=== PATIENT | male | born 1960 | race Caucasian/White ===

== ENCOUNTER → 2017-08-20 | Outpatient (CLI) | payer OTHER | LOC: M SMT 11:56 | PROVIDERS: ATTEND Nurse Practitioner Women's Health | DX: Z12.5 Encounter for screening for malignant neoplasm of prostate (principal) | CPT/HCPCS: 36415; G0103 ==

== ENCOUNTER 2017-11-02 20:09 | Emergency (ER) | payer OTHER ==
[2017-11-02] MEDS: NORCO, ANEXSIA 5/325MG TABLET (HYDROcodone/ACETAMINOPHEN) PO (20:29)
== END 2017-11-02 22:23 | disposition home or self-care (01) ==
LOC: M ED 20:09
DX: S39.002A Unspecified injury of muscle, fascia and tendon of lower back, initial encounter (principal); T14.8XXA Other injury of unspecified body region, initial encounter; W20.8XXA Other cause of strike by thrown, projected or falling object, initial encounter; Y92.59 Other trade areas as the place of occurrence of the external cause; Y99.0 Civilian activity done for income or pay
CPT/HCPCS: 72110

== ENCOUNTER 2020-05-08 23:43 | Emergency (ER) | payer OTHER ==
[~2020-05-08] VITALS: Ht 185.4 cm; Wt 119.1 kg
[2020-05-09 00:57] VITALS: BP 140/75
== END 2020-05-09 01:01 | disposition home or self-care (01) ==
LOC: M ED 23:43
DX: Z47.89 Encounter for other orthopedic aftercare (principal); G47.33 Obstructive sleep apnea (adult) (pediatric)

== ENCOUNTER → 2020-05-08 | Outpatient (CLI) | payer OTHER ==
[~2020-05-08] MED LIST: HYDR-3715 PO; IBUP-1022 PO; bp
--- NOTE | 2020-06-07 10:48 | REP ---
RIGHT HAND SERIES CLINICAL: Pain with recent trauma. TECHNIQUE: AP, lateral, bilateral oblique views of the right hand. FINDINGS: There is an oblique nondisplaced fracture at the base of the fifth metacarpal bone with overlying soft tissue swelling. Remainder of examination demonstrates age-related changes. IMPRESSION: Nondisplaced oblique fracture at the base of the fifth metacarpal bone. MTDD
== END ==
LOC: M WUC 09:56
PROVIDERS: ATTEND Nurse Practitioner Family
DX: S62.346A Nondisplaced fracture of base of fifth metacarpal bone, right hand, initial encounter for closed fracture (principal); X58.XXXA Exposure to other specified factors, initial encounter; Y92.9 Unspecified place or not applicable; Y99.9 Unspecified external cause status

== ENCOUNTER → 2020-10-10 | Outpatient (CLI) | payer OTHER | LOC: M LABSMTC 13:56 | PROVIDERS: ATTEND Pediatrics | DX: Z20.822 Contact with and (suspected) exposure to COVID-19 (principal) | CPT/HCPCS: C9803; U0003 ==

== ENCOUNTER → 2021-01-18 | Outpatient (REF) ==
--- NOTE | 2021-01-18 08:46 | REPPI ---
INDICATION: RIGHT KNEE PAIN DISABILITY COMPARISON: None. TECHNIQUE: AP, lateral, bilateral oblique and sunrise views. FINDINGS: Mild tricompartmental osteoarthritic degenerative changes include subchondral sclerosis along the tibial plateau and posterior patellar margin along with mild joint space narrowing and small marginal osteophytes. No acute fracture or dislocation. Calcifications of the quadriceps tendon and patellar ligament along the anterior margin of the patella noted with prepatellar soft tissue swelling. No evidence for acute fracture or dislocation. No obvious effusion. IMPRESSION: Mild/moderate tricompartmental degenerative changes. <Electronically signed by Reji Casillas > 01/18/21 0869
== END ==
LOC: M PLAIMG 08:13
PROVIDERS: ATTEND Internal Medicine
DX: M17.11 Unilateral primary osteoarthritis, right knee (principal)

== ENCOUNTER → 2022-03-03 | Outpatient (CLI) | payer OTHER ==
[~2022-03-03] MED LIST changes: +CALC1TAB30 PO; +D3 H2000 PO; +IBUP200T46 PO; +META0.52 PO; +POTA99CA2 PO; +SILD100T7 PO; +TAMS1CAP17 PO; +VISISOL2 OP; +VITA500T40 PO; +ZINC30CA PO; +[UNRECOGNIZED DRUG - OTHER] PO
== END ==
LOC: M LABSMTC 09:43
PROVIDERS: ATTEND Anesthesiology
DX: Z01.818 Encounter for other preprocedural examination (principal); Z11.52 Encounter for screening for COVID-19

== ENCOUNTER → 2022-10-19 | Outpatient (CLI) | payer OTHER ==
[~2022-10-19] MED LIST changes: +[UNRECOGNIZED DRUG - OTHER]
== END ==
LOC: M LABSMTC 10:16
PROVIDERS: ATTEND Anesthesiology
DX: Z01.812 Encounter for preprocedural laboratory examination (principal); Z20.822 Contact with and (suspected) exposure to COVID-19

== ENCOUNTER 2022-10-22 07:31 | Day surgery (SDC) | payer OTHER ==
[~2022-10-22] VITALS: Ht 185.4 cm; Wt 132.9 kg
[~2022-10-22 07:31] MED LIST changes: +NS 1,000 ML IV ONE
[2022-10-22] MEDS ORDERED: LIDOCAINE 2% 100MG/5ML SDV (FOR ANES.) As Ordered ONE (08:38)
[2022-10-22] MEDS ORDERED: propofoL 200 MG/20 ML VIAL As Ordered ONE ×2 (08:38→09:11)
[2022-10-22 09:40] VITALS: BP 131/63
== END 2022-10-22 10:13 | disposition home or self-care (01) ==
LOC: M OPP 07:31
PROVIDERS: ATTEND Internal Medicine Gastroenterology
DX: Z12.11 Encounter for screening for malignant neoplasm of colon (principal); D12.8 Benign neoplasm of rectum; K63.5 Polyp of colon; K57.30 Diverticulosis of large intestine without perforation or abscess without bleeding; K64.0 First degree hemorrhoids; Z79.51 Long term (current) use of inhaled steroids; Z79.899 Other long term (current) drug therapy; Z99.89 Dependence on other enabling machines and devices; G47.33 Obstructive sleep apnea (adult) (pediatric); N40.0 Benign prostatic hyperplasia without lower urinary tract symptoms

== ENCOUNTER → 2023-09-05 | Outpatient (REF) | payer OTHER ==
[~2023-09-05] MED LIST changes: -NS 1,000 ML IV ONE
== END ==
LOC: M LAB REF 18:08
PROVIDERS: ATTEND Physician Assistant
DX: R42 Dizziness and giddiness (principal)

== ENCOUNTER 2023-09-07 21:00 | Emergency (ER) | payer OTHER ==
[2023-09-07 21:35] VITALS: TEMP 97.2; O2SAT 97
[2023-09-07] MEDS ORDERED: LORazepam 2 MG/ML 1ML VIAL IV STA (22:09)
[2023-09-07 23:14] LABS: BASO % 0.2 % (0.0-1.0); EOS # 0.2 10^3/uL (0.0-0.5); HEMATOCRIT 43.2 % (42.0-52.0); HEMOGLOBIN 15.2 g/dl (13.5-17.5); LYMPH # 1.9 10^3/uL (1.5-5.0); LYMPH % 20.4 % (24.0-44.0); MEAN CORPUSCULAR HEMOGLOBIN 31.1 pg (27.0-33.0); MEAN CORPUSCULAR HGB CONC 35.2 g/dl (32.0-36.5); MEAN CORPUSCULAR VOLUME 88.3 fl (80.0-96.0); MONO # 0.7 10^3/uL (0.0-0.8); NEUTROPHILS # 6.3 10^3/uL (1.5-8.5); NEUTROPHILS % 69.1 % (36.0-66.0); PLATELET COUNT, AUTOMATED 172 10^3/uL (150-450); RED BLOOD COUNT 4.89 10^6/uL (4.30-6.10); WHITE BLOOD COUNT 9.1 10^3/uL (4.0-10.0)
[2023-09-07 23:37] LABS: ALBUMIN 3.6 G/DL (3.2-5.2); ALKALINE PHOSPHATASE 73 U/L (46-116); ALT/SGPT 49 U/L (7.0-40); AST/SGOT 30 U/L (<34); BILIRUBIN,TOTAL 0.5 MG/DL (0.3-1.2); BLOOD UREA NITROGEN 12 MG/DL (9-23); CALCIUM LEVEL 9.1 MG/DL (8.3-10.6); CARBON DIOXIDE LEVEL 26 MMOL/L (20-31); CHLORIDE LEVEL 107 MMOL/L (98-107); CK-MB VALUE MASS < 1.0 NG/ML (<3.6); CPK CREATINE PHOSPHOKINASE 50 U/L (46-171); CREATININE FOR GFR 0.64 MG/DL (0.70-1.30); GLOMERULAR FILTRATION RATE > 60.0 (>49); GLUCOSE, FASTING 127 MG/DL (74-106); POTASSIUM SERUM 3.9 MMOL/L (3.5-5.1); SODIUM LEVEL 140 MMOL/L (136-145); TOTAL PROTEIN 6.1 G/DL (5.7-8.2)
[2023-09-07 23:39] LABS: FREE T4 1.13 NG/DL (0.89-1.76); THYROID STIMULATING HORMONE 2.392 uIU/ML (0.55-4.78)
[2023-09-07 23:59] VITALS: BP 177/89
== END 2023-09-08 01:40 | disposition home or self-care (01) ==
LOC: M ED 21:00
DX: H81.10 Benign paroxysmal vertigo, unspecified ear (principal); R00.1 Bradycardia, unspecified; I10 Essential (primary) hypertension; G47.33 Obstructive sleep apnea (adult) (pediatric); N40.0 Benign prostatic hyperplasia without lower urinary tract symptoms; Z79.899 Other long term (current) drug therapy; Z79.1 Long term (current) use of non-steroidal anti-inflammatories (NSAID)
CPT/HCPCS: 70450; 70544; 70551; 71045; 80053; 82550; 82553; 84439; 84443; 84484; 85025; 93005; 93041; 94760; 96374; 99284; J2060

== ENCOUNTER → 2024-04-05 | Outpatient (CLI) | payer OTHER | LOC: M WUC 11:38 | PROVIDERS: ATTEND Nurse Practitioner Family | DX: M54.6 Pain in thoracic spine (principal); W01.10XA Fall on same level from slipping, tripping and stumbling with subsequent striking against unspecified object, initial encounter; M85.88 Other specified disorders of bone density and structure, other site ==

== ENCOUNTER → 2024-05-27 | Outpatient (REF) | payer OTHER ==
[2024-05-27 13:42] LABS: APPEARANCE, URINE CLEAR (CLEAR); BACTERIA, URINE AUTO NEGATIVE (NEGATIVE); BILIRUBIN, URINE AUTO NEGATIVE (NEGATIVE); BLOOD, URINE BLOOD NEGATIVE (NEGATIVE); COLOR, URINE YELLOW (YELLOW); GLUCOSE, URINE (UA) AUTO NEGATIVE (NEGATIVE); KETONE, URINE AUTO NEGATIVE (NEGATIVE); LEUKOCYTE ESTERASE, URINE AUTO NEGATIVE (NEGATIVE); MUCUS, URINE SMALL (NEGATIVE); NITRITE, URINE AUTO NEGATIVE (NEGATIVE); PROTEIN, URINE AUTO NEGATIVE (NEGATIVE); RBC, URINE AUTO 0 /HPF (0-3); SPECIFIC GRAVITY URINE AUTO 1.018 (1.002-1.035); SQUAMOUS EPITHELIAL CELL UR AU 0 /HPF (0-6); UROBILINOGEN, URINE AUTO 0.2 mg/dL (0.0-2.0); WBC, URINE AUTO 1 /HPF (0-3)
== END ==
LOC: M LAB REF 12:42
PROVIDERS: ATTEND Physician Assistant
DX: R82.90 Unspecified abnormal findings in urine (principal)

== ENCOUNTER 2025-09-08 17:21 | Inpatient (IN) | payer OTHER ==
[~2025-09-08] VITALS: Ht 185.4 cm; Wt 146.4 kg
[~2025-09-08 17:21] MED LIST changes: -IBUP-1022 PO; +IBUP600T42 PO
[2025-09-08] MEDS: NS (Normal Saline) 0.9% 1,000 ML IV ONE (18:22)
[2025-09-08 18:24] LABS: BASO # 0.0 10^3/uL (0.0-0.2); BASO % 0.2 % (0.0-1.0); EOS # 0.0 10^3/uL (0.0-0.5); EOS % 0.0 % (0.0-3.0); LYMPH # 0.4 10^3/uL (1.5-5.0); LYMPH % 3.5 % (24.0-44.0); MONO # 1.3 10^3/uL (0.0-0.8); MONO % 13.3 % (2.0-8.0); NEUTROPHILS # 8.2 10^3/uL (1.5-8.5); NEUTROPHILS % 82.7 % (36.0-66.0); PLATELET COUNT, AUTOMATED 131 10^3/uL (150-450)
[2025-09-08 18:45] LABS: ALT/SGPT 77 U/L (7.0-40); AST/SGOT 60 U/L (<34); C REACTIVE PROTEIN QUANTITATIV 4.51 MG/DL (<1.0); CALCIUM LEVEL 9.2 MG/DL (8.3-10.6); CARBON DIOXIDE LEVEL 25 MMOL/L (20-31); CHLORIDE LEVEL 105 MMOL/L (98-107); CREATININE FOR GFR 0.75 MG/DL (0.70-1.30); GLOMERULAR FILTRATION RATE > 90.0 (>49); POTASSIUM SERUM 3.9 MMOL/L (3.5-5.1); SODIUM LEVEL 141 MMOL/L (136-145)
[2025-09-08 18:59] LABS: SOFIA COVID ANTIGEN NEGATIVE (NEGATIVE)
[2025-09-08 19:27] LABS: KETONE, URINE AUTO RFX NEGATIVE (NEGATIVE); LEUKOCYTE ESTERASE UR AUTO RFX NEGATIVE (NEGATIVE); NITRITE, URINE AUTO RFX NEGATIVE (NEGATIVE); RBC, URINE AUTO RFX 19 /HPF (0-3); SQUAM EPITHELIAL CELL UR AURFX 0 /HPF (0-6); WBC, URINE AUTO RFX 0 /HPF (0-3)
[2025-09-08] MEDS ORDERED: med rec comment (19:53)
[2025-09-08] MEDS: cefTRIAXone SOD 1 GM in DEXTROSE 5% (D5W) ADV/MINI-BAG 50 ML IV ONE (20:01)
[2025-09-08] MEDS ORDERED: HOME MED LIST COMPLETE! XX SCH (20:25)
[2025-09-08] MEDS ORDERED: ONDANSETRON 4MG/2ML VIAL IV PRN (21:40)
[2025-09-08] MEDS ORDERED: MOM 30 ML SUSPENSION UDC PO PRN (21:40)
[2025-09-08] MEDS: DOXYCYCLINE HYCLATE 100 MG in DEXTROSE 5% (D5W) MINI-BAG PLU 100 ML IV SCH (22:33)
[2025-09-08] MEDS: OSELTAMIVIR PHOSPHATE 75 MG CAP PO SCH (22:33)
[2025-09-08] MEDS: amLODIPine 5 MG TAB PO ONE (22:44)
[2025-09-08 22:51] VITALS: BP 188/76; TEMP 101.7; O2SAT 95
[2025-09-08] MEDS: ACETAMINOPHEN 325 MG TAB PO PRN (23:12)
[2025-09-08] MEDS: IPRATROPIUM 0.5 MG/ALBUTEROL 2.5 MG INH SOL UD 3 ML NEB PRN (23:45)
[2025-09-09] VITALS (12 sets, daily range): BP systolic 133–192; BP diastolic 62–84; TEMP 96.9–102.2; O2SAT 90–98
[2025-09-09] MEDS: **hydrALAZINE HCL** 25 MG TAB PO ONE (00:39)
[2025-09-09] MEDS: IBUPROFEN 800 MG TAB PO ONE (01:14)
[2025-09-09] MEDS: NS (Normal Saline) 0.9% 1,000 ML IV SCH (01:18)
[2025-09-09 06:53] LABS: PLATELET COUNT, AUTOMATED 113 10^3/uL (150-450)
[2025-09-09 07:42] LABS: ALT/SGPT 62 U/L (7.0-40); AST/SGOT 54 U/L (<34); CALCIUM LEVEL 8.5 MG/DL (8.3-10.6); CARBON DIOXIDE LEVEL 23 MMOL/L (20-31); CHLORIDE LEVEL 108 MMOL/L (98-107); CREATININE FOR GFR 0.63 MG/DL (0.70-1.30); GLOMERULAR FILTRATION RATE > 90.0 (>49); MAGNESIUM LEVEL 1.8 MG/DL (1.8-2.4); POTASSIUM SERUM 3.7 MMOL/L (3.5-5.1); SODIUM LEVEL 141 MMOL/L (136-145)
[2025-09-09] MEDS: cefTRIAXone SOD 2 GM in DEXTROSE 5% (D5W) ADV/MINI-BAG 50 ML IV SCH (08:38)
[2025-09-09] MEDS: ENOXAPARIN 40 MG/0.4 ML SYRINGE (J1650 PER 10MG) SC SCH (08:53)
[2025-09-09] MEDS: **hydrALAZINE** 10 MG TAB PO ONE (10:08)
[2025-09-09] MEDS: FUROSEMIDE 20 MG/2 ML VIAL IV ONE (12:26)
[2025-09-09] MEDS: IPRATROPIUM 0.5 MG/ALBUTEROL 2.5 MG INH SOL UD 3 ML NEB PRN (13:53)
[2025-09-09] MEDS ORDERED: MIRALAX *UNIT DOSE* 17 GM PACKET PO PRN (17:25)
[2025-09-09] MEDS: amLODIPine 10 MG TAB PO SCH (20:03)
[2025-09-09] MEDS: **hydrALAZINE HCL** 25 MG TAB PO PRN (21:19)
[2025-09-09] MEDS ORDERED: PILL CUTTER 1 EACH XX PRN (23:20)
[2025-09-09] MEDS: **hydrALAZINE HCL** 25 MG TAB PO SCH (23:25)
[2025-09-10] VITALS (7 sets, daily range): BP systolic 132–159; BP diastolic 65–74; TEMP 97.1–98.1; O2SAT 93–100
[2025-09-10 06:06] LABS: BASO # 0.0 10^3/uL (0.0-0.2); BASO % 0.2 % (0.0-1.0); EOS # 0.1 10^3/uL (0.0-0.5); EOS % 1.2 % (0.0-3.0); LYMPH # 0.9 10^3/uL (1.5-5.0); LYMPH % 15.0 % (24.0-44.0); MONO # 1.0 10^3/uL (0.0-0.8); MONO % 16.3 % (2.0-8.0); NEUTROPHILS # 4.0 10^3/uL (1.5-8.5); NEUTROPHILS % 66.8 % (36.0-66.0); PLATELET COUNT, AUTOMATED 125 10^3/uL (150-450)
[2025-09-10 06:35] LABS: CALCIUM LEVEL 8.7 MG/DL (8.3-10.6); CARBON DIOXIDE LEVEL 26 MMOL/L (20-31); CHLORIDE LEVEL 106 MMOL/L (98-107); CREATININE FOR GFR 0.67 MG/DL (0.70-1.30); GLOMERULAR FILTRATION RATE > 90.0 (>49); MAGNESIUM LEVEL 1.9 MG/DL (1.8-2.4); POTASSIUM SERUM 3.8 MMOL/L (3.5-5.1); SODIUM LEVEL 141 MMOL/L (136-145)
[2025-09-10] MEDS ORDERED: ISOVUE-370 76% 100 ML VIAL As Ordered ONE (08:32)
[2025-09-10] MEDS: LOSARTAN 25 MG TAB PO SCH (10:36)
[2025-09-10] MEDS: MAG SULF 1GM/100ML (MAG RUN) 1 GM in IV 1 EA IV ONE (11:37)
[2025-09-10] MEDS: DOXYCYCLINE HYCLATE 100 MG TABLET PO SCH (12:40)
[2025-09-10] MEDS: FUROSEMIDE 20 MG/2 ML VIAL IV ONE (16:40)
[2025-09-11 03:42] VITALS: BP 153/70; TEMP 98.2; O2SAT 97
[2025-09-11 06:29] LABS: BASO # 0.0 10^3/uL (0.0-0.2); BASO % 0.2 % (0.0-1.0); EOS # 0.1 10^3/uL (0.0-0.5); EOS % 2.2 % (0.0-3.0); LYMPH # 1.1 10^3/uL (1.5-5.0); LYMPH % 22.7 % (24.0-44.0); MONO # 0.6 10^3/uL (0.0-0.8); MONO % 12.7 % (2.0-8.0); NEUTROPHILS # 3.1 10^3/uL (1.5-8.5); NEUTROPHILS % 61.8 % (36.0-66.0); PLATELET COUNT, AUTOMATED 140 10^3/uL (150-450)
[2025-09-11 06:52] LABS: CALCIUM LEVEL 8.6 MG/DL (8.3-10.6); CARBON DIOXIDE LEVEL 24 MMOL/L (20-31); CHLORIDE LEVEL 105 MMOL/L (98-107); CREATININE FOR GFR 0.65 MG/DL (0.70-1.30); GLOMERULAR FILTRATION RATE > 90.0 (>49); MAGNESIUM LEVEL 2.0 MG/DL (1.8-2.4); POTASSIUM SERUM 3.7 MMOL/L (3.5-5.1); SODIUM LEVEL 139 MMOL/L (136-145)
[2025-09-11 08:34] VITALS: BP 128/66; TEMP 98.7; O2SAT 98
[2025-09-11] MEDS: FUROSEMIDE 40 MG/4 ML VIAL IV ONE (09:38)
[2025-09-11 11:51] VITALS: BP 153/67; TEMP 96.8; TEMP 98.5; O2SAT 94
[2025-09-11 19:53] VITALS: BP 149/70; TEMP 99.6; O2SAT 95
[2025-09-11] MEDS: POTASSIUM CHLORIDE 10MEQ SR TABLET PO ONE (20:52)
[2025-09-12 00:20] VITALS: BP 129/60; TEMP 98.3; O2SAT 95
[2025-09-12 05:35] VITALS: BP 131/65; TEMP 98.5; O2SAT 97
[2025-09-12 08:05] VITALS: BP 134/64; TEMP 98.7; O2SAT 95
[2025-09-12] MEDS: CEFPODOXIME PROXETIL 200 MG TABLET PO SCH (08:10)
[2025-09-12 08:11] VITALS: BP 134/64
[2025-09-12 08:39] LABS: BASO # 0.0 10^3/uL (0.0-0.2); BASO % 0.4 % (0.0-1.0); EOS # 0.1 10^3/uL (0.0-0.5); EOS % 2.2 % (0.0-3.0); LYMPH # 1.1 10^3/uL (1.5-5.0); LYMPH % 19.4 % (24.0-44.0); MONO # 0.7 10^3/uL (0.0-0.8); MONO % 12.7 % (2.0-8.0); NEUTROPHILS # 3.6 10^3/uL (1.5-8.5); NEUTROPHILS % 65.1 % (36.0-66.0); PLATELET COUNT, AUTOMATED 150 10^3/uL (150-450)
[2025-09-12] MEDS ORDERED: AMLO1TAB25 PO (08:45)
[2025-09-12] MEDS ORDERED: OSEL75CA2 PO (08:45)
[2025-09-12] MEDS ORDERED: LOSA-527 PO (08:45)
[2025-09-12] MEDS ORDERED: CEFP200T PO (08:45)
[2025-09-12] MEDS ORDERED: ACET32TAB PO (08:45)
[2025-09-12 09:09] LABS: CALCIUM LEVEL 9.3 MG/DL (8.3-10.6); CARBON DIOXIDE LEVEL 26 MMOL/L (20-31); CHLORIDE LEVEL 105 MMOL/L (98-107); CREATININE FOR GFR 0.64 MG/DL (0.70-1.30); GLOMERULAR FILTRATION RATE > 90.0 (>49); POTASSIUM SERUM 4.2 MMOL/L (3.5-5.1); SODIUM LEVEL 140 MMOL/L (136-145)
== END 2025-09-12 13:08 | disposition home or self-care (01) | DRG 179 ==
LOC: EDBD 17:21 → M ED 17:21 → M ED INP 21:36 → M MSPAV 22:51
PROVIDERS: ADMIT Internal Medicine; ATTEND Internal Medicine
DX: J10.08 Influenza due to other identified influenza virus with other specified pneumonia (principal); J15.8 Pneumonia due to other specified bacteria; I10 Essential (primary) hypertension; K74.60 Unspecified cirrhosis of liver; K76.9 Liver disease, unspecified; G47.33 Obstructive sleep apnea (adult) (pediatric); E66.01 Morbid (severe) obesity due to excess calories; Z79.899 Other long term (current) drug therapy